=== PATIENT | female | born 1985 | race Caucasian/White ===

== ENCOUNTER → 2016-08-16 | Outpatient (CLI) | payer OTHER ==
[2016-08-17 08:00] VITALS: BP 111/71
== END ==
LOC: MHUC 19:10
PROVIDERS: ATTEND Physician Assistant Medical
DX: J06.9 Acute upper respiratory infection, unspecified (principal)
CPT/HCPCS: 99213

== ENCOUNTER → 2016-08-30 | Outpatient (CLI) | payer OTHER | LOC: RAD 10:31 | PROVIDERS: ATTEND Internal Medicine Cardiovascular Disease | DX: G71.11 Myotonic muscular dystrophy (principal) | CPT/HCPCS: 93306 ==

== ENCOUNTER → 2016-09-01 | Outpatient (CLI) | payer OTHER | LOC: RAD 09:36 | PROVIDERS: ATTEND Psychiatry & Neurology Neuromuscular Medicine | DX: Z53.9 Procedure and treatment not carried out, unspecified reason (principal) ==

== ENCOUNTER 2016-09-08 11:18 | Outpatient (RCR) | payer OTHER ==
[~2016-09-08 11:18] MED LIST: AMOX-358 PO; CHOLESTIPOL; FLX20C PO; PROGESTERON; estrogen; prenatal vitamins
--- NOTE | 2016-09-12 12:55 | PT/OT/ST INITIAL EVALUATION ---
Department of Health and Human Services Form Approved [facility] Care Financing Administration OMB No. [id number] PLAN OF CARE/ASSESSMENT FOR OUTPATIENT REHABILITATION (Complete for Initial Claims Only) 1. PATIENT'S NAME Jessica Marie 2. ACC # [id number] 3. HICN NA 4. PROVIDER NO. 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 PRIOR HOSPITALIZATION None 7. PRIMARY DX Myatonic dystrophy type 1 8. SECONDARY DX Pharyngeal dysphagia 9. ONSET DATE Approximately 2 years ago 10. REFERRAL DATE September 01, 2016 11. SOC. DATE September 08, 2016 12. TIME OF EVAL 11:[address] Stacie Bradley 13. CHARGES/UNITS NA 14. G CODES NA 15. PRIOR LEVEL OF FUNCTION; PERTINENT HISTORY (Prior therapy results, reason for referral.) S: Prior to therapy the patient consented to today's evaluation and treatment. The patient is a 30-year-old female referred to speech therapy by Dr. Bradley to address dysphagia. Personal health rating: The patient rates her overall and general health as good. Mechanism of injury: She has no mechanism of injury. Primary Complaint: She was diagnosed with myatonic dystrophy type 1 and she has been having some weakness and swallowing difficulties. She states she noticed the difficulties a couple of years ago, but just recently they have gotten worse and she feels like foods and pills get stuck and it takes multiple swallows of liquids to help wash them down. Prior to the onset of her dystrophy, she did not have any difficulties. She has never received therapy for this. Social history: The patient lives at home with her and children. Aggravating factors: She has no aggravating factors. Diagnostic testing: She has had no diagnostic testing. Past medical history: Includes the myatonic dystrophy. No surgeries were stated. Current medications: Medications were reviewed and none should impact her swallowing. 16. INITIAL ASSESSMENT/SAFETY PRECAUTIONS/MEDICAL COMPLICATIONS (Level of function at start of care. Be specific, use objective measures, list problems.) O: APPEARANCE AND OBSERVATION: Upon assessment, the patient was given a modified barium swallow study. She was given pudding-thick through thin liquid consistencies, ground meat, crackers and a 10-mm barium pill. On all of these she demonstrated efficient oral motility and was able to clear her oral cavity. She had proper bolus control of the posterior tongue and a pharyngeal swallow trigger without delay. On all consistencies, she demonstrated valleculae residue that was cleared with a secondary swallow. She also had pyriform sinus residue that was cleared with multiple swallows and multiple drinks of clear liquid to clear the residue. She had no laryngeal penetration or aspiration and no reflexive or protective cough was needed. She was able to swallow a 10-mm barium pill and it did not get stuck. 17. 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 Speech therapy services are recommended for strengthening of the pharyngeal muscles for swallow safety and function. The patient demonstrated understanding of this and if so desired, an order would be needed for outpatient services for speech therapy for strengthening. P: The plan is to discharge the patient at this time secondary to order only for modified barium swallow study. 18. FREQUENCY Evaluation only 19. DURATION NA 20. FUNCTIONAL LEVEL (End of claim period) 21. PHYSICIAN SIGNATURE ? ON FILE OR ENTER HERE: 22. DATE: I certify the need for these services furnished under this plan of care and if for partial hospitalization. 23. CERTIFICATION FROM THROUGH FORM [id number]
== END 2016-09-08 15:00 | disposition home or self-care (01) ==
LOC: ST 11:18
PROVIDERS: ATTEND Psychiatry & Neurology Neuromuscular Medicine
DX: G71.11 Myotonic muscular dystrophy (principal); R13.13 Dysphagia, pharyngeal phase

== ENCOUNTER → 2016-09-08 | Outpatient (CLI) | payer OTHER | LOC: RAD 10:48 | PROVIDERS: ATTEND Psychiatry & Neurology Neuromuscular Medicine | DX: G71.11 Myotonic muscular dystrophy (principal) | CPT/HCPCS: 74220; 74230 ==